=== PATIENT | female | born 1965 | race Caucasian/White ===

== ENCOUNTER 2023-08-22 23:51 | Emergency (ER) | payer OTHER, SELFPAY ==
[2023-08-22 23:59] VITALS: BP 140/87; BMI 27.6
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
[2023-08-23 00:32] LABS: % Basophils 0.8 % (0-2); % Eosinophils 2.1 % (0-6); % Immature Granulocytes 1.4 % (0-0.5); % Lymphocytes 35.1 % (20.5-51.1); % Neutrophils 52.6 % (42.2-75.2); Absolute Basophils 0.1 10^3/uL (0-0.2); Absolute Eosinophils 0.2 10^3/uL (0-0.7); Absolute Immature Granulocytes 0.1 10^3/uL (0-0.05); Absolute Lymphocytes 3.1 10^3/uL (1.2-3.4); Absolute Monocytes 0.7 10^3/uL (0.1-0.6); Absolute Neutrophils 4.6 10^3/uL (1.4-6.5); Hematocrit 38.6 % (37.0-47.0); Hemoglobin 13.3 g/dL (12.0-16.0); Mean Corp Hgb Conc. 34.5 g/dL (33.0-37.0); Mean Corpuscular Hgb 34.8 pg (27.0-31.0); Mean Platelet Volume 9.7 fL (7.4-10.4); Nucleated Red Blood Cells % 0 %; Platelet Count 292 10^3/uL (130-400); Red Blood Cell Count 3.82 10^6/uL (4.20-5.40); White Blood Cell Count 8.8 10^3/uL (4.8-10.8)
[2023-08-23 00:35] LABS: ALT (SGPT) 44 U/L (0-35); AST (SGOT) 42 U/L (14-36); Albumin 4.4 g/dl (3.5-5.0); Alkaline Phosphatase 66 U/L (38-126); Blood Urea Nitrogen 18 mg/dl (7-17); Calcium 9.2 mg/dl (8.4-10.2); Carbon Dioxide 25 mmol/L (22-30); Chloride 107 mmol/L (98-107); Estimated Creatinine Clearance 75 ml/min; Glucose 150 mg/dl (70-99); Sodium 142 mmol/L (135-145); Total Bilirubin 0.4 mg/dl (0.2-1.3); eGFR > 60.00
[2023-08-23 01:00] VITALS: BP 140/89
[2023-08-23 01:00] LABS: Acetaminophen < 10 ug/ml (10-30); Salicylate < 1.0 mg/dl (2.0-20.0)
[2023-08-23 02:00] VITALS: BP 131/70
== END 2023-08-23 02:25 | disposition home or self-care (01) ==
LOC: EMR 23:51
PROVIDERS: EMERGENCY PHYSICIAN Emergency Medicine; FAMILY PHYSICIAN Internal Medicine
DX: T40.1X1A Poisoning by heroin, accidental (unintentional), initial encounter (principal); R55 Syncope and collapse; R03.0 Elevated blood-pressure reading, without diagnosis of hypertension; G89.29 Other chronic pain; M54.2 Cervicalgia
CPT/HCPCS: 99283; 80053; 80143; 80179; 85025; 93005

== ENCOUNTER 2023-11-01 19:51 | Emergency (ER) | payer OTHER, SELFPAY ==
[2023-11-01 19:52] VITALS: BMI 27.3
[2023-11-01 19:54] VITALS: BP 137/83
[2023-11-01 20:06] LABS: % Basophils 0.7 % (0-2); % Eosinophils 5.4 % (0-6); % Immature Granulocytes 0.3 % (0-0.5); % Lymphocytes 26.6 % (20.5-51.1); % Monocytes 8.3 % (1.7-9.3); % Neutrophils 58.7 % (42.2-75.2); Absolute Basophils 0.1 10^3/uL (0-0.2); Absolute Eosinophils 0.6 10^3/uL (0-0.7); Absolute Lymphocytes 2.7 10^3/uL (1.2-3.4); Absolute Monocytes 0.8 10^3/uL (0.1-0.6); Hematocrit 37.8 % (37.0-47.0); Hemoglobin 13.3 g/dL (12.0-16.0); Mean Corp Hgb Conc. 35.2 g/dL (33.0-37.0); Mean Corpuscular Volume 99.5 fL (81.0-99.0); Nucleated Red Blood Cells % 0 %; Platelet Count 244 10^3/uL (130-400); Red Cell Dist. Width 12.3 % (11.5-14.5); White Blood Cell Count 10.2 10^3/uL (4.8-10.8)
[2023-11-01 20:23] LABS: ALT (SGPT) 44 U/L (0-35); AST (SGOT) 39 U/L (14-36); Acetaminophen < 10 ug/ml (10-30); Albumin 4.1 g/dl (3.5-5.0); Alcohol 155 mg/dl; Alkaline Phosphatase 75 U/L (38-126); Blood Urea Nitrogen 16 mg/dl (7-17); Calcium 8.9 mg/dl (8.4-10.2); Carbon Dioxide 24 mmol/L (22-30); Chloride 107 mmol/L (98-107); Estimated Creatinine Clearance 96 ml/min; Glucose 94 mg/dl (70-99); Potassium 3.7 mmol/L (3.5-5.1); Salicylate < 1.0 mg/dl (2.0-20.0); Sodium 141 mmol/L (135-145); Total Bilirubin 0.4 mg/dl (0.2-1.3); Total Protein 6.8 g/dl (6.3-8.2); eGFR > 60.00
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
== END 2023-11-01 20:44 | disposition home or self-care (01) ==
LOC: EMR 19:51
PROVIDERS: EMERGENCY PHYSICIAN Emergency Medicine
DX: R55 Syncope and collapse (principal); T40.1X1A Poisoning by heroin, accidental (unintentional), initial encounter; F19.10 Other psychoactive substance abuse, uncomplicated; F10.229 Alcohol dependence with intoxication, unspecified; F17.200 Nicotine dependence, unspecified, uncomplicated; Z86.19 Personal history of other infectious and parasitic diseases; Z88.0 Allergy status to penicillin
CPT/HCPCS: 99283; 80053; 80143; 80179; 82077; 85025